=== PATIENT | female | born 1940 | race Caucasian/White ===

== ENCOUNTER 2019-03-26 22:42 | Inpatient (IN) | payer MEDICARE, OTHER, SELFPAY ==
[2019-03-26 22:05] VITALS: BMI 29.1
--- NOTE | 2019-03-26 22:40 | PCM.HP.STD ---
Problem List (1) Fracture of ankle, trimalleolar, right, closed Status: Acute (2) Right ankle pain Status: Acute (3) Osteoporosis Status: Acute (4) Anxiety Status: Chronic (5) Hypertension Status: Chronic (6) Chronic kidney disease Status: Chronic (7) Diabetes mellitus with neuropathy Status: Chronic Qualifiers: Diabetes mellitus type: type 2 History of Present Illness Date of Admission: 03/26/19 Chief Complaint: Right ankle fracture The patient is a 79 year old F with diabetes sustained a right ankle fracture which he stepped incorrectly off of one step at home. The onset of injury was 14 o'clock on 03/26/19. She denies other injuries or loss of consciousness. She initially presented to [place] emergency room in which the fracture was reduced and splinted. Her pain is moderate and is aggravated with leg motion. She denies claudication. She does have rest paresthesias consistent with diabetic neuropathy. She relates her last hemoglobin A1c level was less than 7. She denies history of wounds. She is with her daughter, Cayetano, this evening. She relates she is currently a smoker and will have no problem avoiding this activity at this time. Past Medical History Past Medical History (Chronic Problems): Chronic Problems (Last Updated 03/26/19 @ 22:57 by Renu Padgett DPM) Anxiety (Chronic) Hypertension (Chronic) Chronic kidney disease (Chronic) Diabetes mellitus with neuropathy (Chronic) Medical History: Medical History (Last Updated 03/26/19 @ 22:57 by Renu Padgett DPM) Compression fracture of spine M48.50XA De Quervain's disease (tenosynovitis) M65.4 Hyperlipidemia E78.5 Obesity E66.9 Tobacco user Z72.0 Chronic back pain M54.9, G89.29 Allergies amoxicillin [From Augmentin] Adverse Reaction (Verified 03/26/19 22:06) Diarrhea clavulanic acid [From Augmentin] Adverse Reaction (Verified 03/26/19 22:06) Diarrhea iodine Adverse Reaction (Verified 03/26/19 22:08) Other Long time ago got a shot of Iodine and about passed out. Home Medications: Ambulatory Orders Medication Instructions Recorded Acetaminophen [Tylenol Extra 1,000 mg PO BID 03/26/19 Strength] Alendronate Sodium 70 mg PO WE 03/26/19 Aspir-Low 1 tab PO DAILY 03/26/19 Calcitriol 0.5 mcg PO DAILY 03/26/19 Cholecalciferol (Vitamin D3) 50,000 unit PO DAILY 03/26/19 [D3-50] Glipizide 5 mg PO BIDCM 03/26/19 Lisinopril 2.5 mg PO DAILY 03/26/19 Paroxetine HCl [Paxil] 30 mg PO DAILY 03/26/19 Pioglitazone [Actos] 45 mg PO DAILY 03/26/19 Ranitidine [Zantac] 150 mg PO DAILY 03/26/19 Rosuvastatin Calcium [Crestor] 10 mg PO QHS 03/26/19 Surgical History: hysterectomy, tonsillectomy, - - Lymph node dissection Psychiatric History: Anxiety Lives: Spouse/ Significant Other, With Family - She lives with her adult daughter in which her relates his home on a regular basis throughout the day Smoking Status: Current every day smoker Tobacco Use: Cigarettes Alcohol: None Drugs: None - *Family History Maternal History Items: No pertinent history Review of Systems Constitutional: Reports: Fatigue. Denies: Chills, Fever HEENT: Reports: Difficulty Hearing. Denies: Sore Throat, Visual Changes Cardiovascular: Reports: Edema. Denies: Chest Pain, Claudication, Orthopnea Respiratory: Denies: Shortness of Breath Gastrointestinal: Denies: Abdominal Pain, Constipation, Diarrhea, Nausea, Vomiting Genitourinary: Denies: Dysuria Musculoskeletal: Reports: Leg Pain Skin: Denies: Skin Changes, Wounds Neurological: Reports: Balance problems, Incoordination, Numbness, Tingling. Denies: Confusion Psychiatric: Reports: Anxiety. Denies: Depression Endocrine: Denies: Change in Body Habitus Hematologic/ Lymphatic: Denies: Anemia, Hx of blood clot VTE Information - Inpt Only VTE Present on Admission: No VTE Mechan Device Prophylaxis: SCD's VTE Pharm Prophylaxis ordered?: Yes Patient Problems: Active and Suspected Problems (Last Updated 03/26/19 @ 22:57 by Renu Padgett DPM) Fracture of ankle, trimalleolar, right, closed (Acute) Right ankle pain (Acute) Osteoporosis (Acute) - Physical Exam Vitals/I&O's: Weight: 79.379 kg Body Mass Index (BMI) 29.1 General: Alert, Oriented x3, Cooperative HEENT: Atraumatic, EOMI, Normocephalic Oral: Moist Mucosa Neck: Supple, - Lungs: Diminished Cardiovascular: Regular rate, Regular Rhythm Abdomen: Soft, Non Tender, Obese Extremities: Capillary Refill Less than 3 Seconds - All digits bilateral, Diminished Peripheral Pulses - Weak dorsalis pedis pulse right foot. She did have a strong biphasic dorsalis pedis pulse of the right foot and to the perforating peroneal on the right., Edema - Mild, - - Per emergency room physician there was skin tenting without fracture blister or drainage or ecchymosis upon presentation. Skin: - - No wounds or streaking noted. Her skin turgor to the feet are normal Musculoskeletal: Muscle Wasting, - - Pain with ankle palpation. Active range of motion digits noted. Lymphatic: Cervical Adenopathy Neurological: Cranial nerves II-XII grossly intact, Neuro grossly intact, Sensory exam intact to light touch and pain, - Psych/Mental Status: Normal Affect, Appropriate Assessment/Plan All Active Problems (Last Updated 03/26/19 @ 22:57 by Renu Padgett DPM) Fracture of ankle, trimalleolar, right, closed (Acute) Right ankle pain (Acute) Osteoporosis (Acute) Right trimalleolar ankle fracture Osteoporosis Diabetes with neuropathy Other comorbidities: Current smoker, history of chronic kidney disease, anxiety I reviewed and discussed her case. Her x-rays were reviewed from [place] emergency room which demonstrate try malleolus ankle fracture that is not reduced and in a splint. Her bone density is diminished. Postreduction her ankle mortise is well aligned. This is an unstable fracture pattern and I recommend surgical intervention if she is medically stable. Her vital signs are reviewed from [place] emergency room and these appear to be stable overall. The benefits versus risks were discussed. Preoperative indications, planned procedure, possible benefits, risk, complications, and anticipated healing time and management were discussed in detail with the patient and her daughter today. No guarantees are made. She elects to proceed with surgery at this time. The tentative surgical plan includes open reduction internal fixation of right ankle fracture versus application of external fixation. She understands risks and complications may include but are not limited to following: Pain, swelling, scarring, need for further surgery, arthritis, chronic pain, over under correction, hardware failure, blood clot, allergic reaction, loss of limb, function, life. Informed surgical consent and limb will need to be signed. I will review the case with the hospitalist at this time and request a clearance for surgery under general anesthesia. Her preoperative tests were ordered including CBC, CMP, hemoglobin A1c, vitamin D, EKG, chest x-ray, and coags. If cleared and diagnostic data is stable, I would consider doing the surgery tomorrow. These results are currently pending and will be followed. Pending surgical plan intervention we discussed the possibility of usp facility placement. I recommend she maintain a strict nonweightbearing status. Smoking cessation was reviewed and discussed. She defers the need for nicotine patch. To ice and elevate for pain inflammation management. Pain medication orders were also placed in computer. She will tentatively be made n.p.o. at midnight. To hold anticoagulation medication until after surgery. SCD to the contralateral limb is recommended at this time. It is noted she is not on any anticoagulation medication at this time. We also discussed her CODE STATUS and she is a DNR. Medical management and DVT prophylaxis per primary team is greatly appreciated. I answered all of her questions. Please do not hesitate to call if any questions. All of her orders were entered electronically. Renu Padgett DPM, [facility] [phone]
--- NOTE | 2019-03-26 22:45 | EKG12_ITS ---
Test Reason : PREOP Blood Pressure : / mmHG Vent. Rate : 067 BPM Atrial Rate : 067 BPM P-R Int : 180 ms QRS Dur : 072 ms QT Int : 402 ms P-R-T Axes : 037 013 034 degrees QTc Int : 424 ms Normal sinus rhythm Septal infarct , age undetermined , cannot be excluded Abnormal ECG Confirmed by SONIYA MARSH, SHA ([id number]), digital editor SHIVA CORONA ([id number]) on 03/31/2019 10:13:20 AM Referred By: Renu Padgett Confirmed By:SHA BYRNES MD
[2019-03-26 22:50] VITALS: BP 149/68; PULSE 65; RESP 18; TEMP 36.6; O2SAT 98
--- NOTE | 2019-03-26 23:15 | RAD_ITS ---
STUDY: X-RAY - RIGHT TIBIA AND FIBULA REASON FOR EXAM: Female, 79 years old. Trauma TECHNIQUE: 4 view(s) of the tibia and fibula were obtained. There is a splint overlying the distal tibia and fibula obscuring bony detail for diagnostic purposes. COMPARISON : None. FINDINGS: There is demineralization of the tibia. There is an acute fracture of the distal fibula with lateral displacement of the distal fragment. There is an offset appearance of the ankle mortise. There is a widening of the tibiotalar joint. A fracture line of the medial malleolus is not included or excluded based on this study. There is a Achilles spur. There is partially visualized soft tissue edema. RAD/Tibia & Fibula 2 Views IMPRESSION: The patient is already in a brace or splint. Disruption of the ankle mortise. Fracture of the distal fibula. Suspect fracture of the medial malleolus that is not well-visualized. Electronically Signed: Maria Alejandra Gutierrez MD at 4:32 EDT Tel , Service support ,
[2019-03-26 23:18] LABS: Absolute Lymphocyte Count 2.73 X10^3/uL (0.83-4.51); Absolute Neutrophil Count 8.4 X10^3/uL (2.0-7.7); Basophil# 0.09 X10^3/uL; Basophil% 0.7 % (0-1); Eosinophil# 0.18 X10^3/uL; Eosinophils% 1.4 % (0-5); Hematocrit 38.3 % (37-47); Hemoglobin 12.2 g/dL (12.0-15.0); Lymphocyte # 2.73 X10^3/ul (4.0); Mean Corp Hgb Conc 31.9 g/dL (32-36); Mean Corpuscular Hgb 30.4 pg (27.0-32.0); Mean Corpuscular Volume 95.5 fL (81-99); Monocyte# 0.97 X10^3/uL; Monocyte% 7.8 % (0-10); NRBC Flagged by Analyzer 0 % (0-5); Neutrophil # 8.39 X10^3/uL (2.7-7.7); Neutrophil % 67.5 % (47-70); Platelet Count 253 K/mm3 (150-450); RBC Distribution Width CV 15.3 % (11.6-14.6); RBC Distribution Width SD 54.2 fl (35.1-43.9); Red Blood Count 4.01 M/mm3 (4.2-5.4); White Blood Count 12.4 K/mm3 (4.4-11.0)
--- NOTE | 2019-03-26 23:24 | RAD_ITS ---
STUDY: X-RAY CHEST REASON FOR EXAM: Female, 79 years old. Pre-op TECHNIQUE: PA and lateral views of the chest. COMPARISON: None. FINDINGS: Allowing for technique there is focal opacity within the lingula. There is no demonstrated pleural abnormality. Normal size heart. Normal mediastinum and adam. Normal visualized pulmonary arteries. Normal visualized aortic arch and descending thoracic aorta. Normal visualized thoracic spine. Normal visualized ribs, clavicles, and shoulders. There is no demonstrated abnormality of the visualized soft tissue structures of the upper abdomen. RAD/Chest PA and Lateral IMPRESSION: Allowing for summation of shadows findings are suspicious for left lingular atelectasis and/or infiltrate. Could consider noncontrast CT scan of the chest to confirm. Electronically Signed: Maria Alejandra Gutierrez MD at 4:49 EDT Tel , Service support ,
[2019-03-26 23:32] LABS: Prothrombin Time (Protime)PT. 13.3 SECONDS (11.7-14.9)
[2019-03-26] MEDS: Morphine 2 MG/ML Syringe IV (23:36)
[2019-03-26 23:37] LABS: ALB/GLOB Ratio 0.8 RATIO (0.9-2.4); AST(SGOT) 13 U/L (15-37); Alanine Aminotransfer ALT/SGPT 13 U/L (13-56); Albumin, Serum 3.1 g/dL (3.2-5.0); Alkaline Phosphatase 76 U/L (45-117); Anion Gap 4 (5-15); BUN 19 mg/dL (7-18); BUN/Creat Ratio 16.8 RATIO (10-20); Calcium,Total 8.1 mg/dL (8.5-10.1); Chloride 114 mmol/L (98-107); Creatinine, Serum 1.13 mg/dL (0.55-1.02); EST Glomerular Filtration Rate 49 mL/min (>60); Est Glom Filt Rate - Afr Amer 60 mL/min (>60); Estimated Creatinine Clearance 36.33 ml/min; Globulin 4.1 g/dL (2.2-4.2); Glucose 99 mg/dL (74-106); Potassium 4.3 mmol/L (3.5-5.1); Protein, Total 7.2 g/dL (6.4-8.2); Sodium Level 141 mmol/L (136-145)
[2019-03-26 23:39] LABS: Hemoglobin A1c 6.6 % (4.2-6.3)
--- NOTE | 2019-03-26 23:40 | PCM.CONS.GEN ---
Problem List (1) Fracture of ankle, trimalleolar, right, closed Status: Acute (2) Right ankle pain Status: Acute (3) Osteoporosis Status: Chronic (4) Anxiety Status: Chronic (5) Hypertension Status: Chronic (6) Chronic kidney disease Status: Chronic Qualifiers: Chronic kidney disease stage: stage 3 (moderate) Qualified Code(s): N18.3 - Chronic kidney disease, stage 3 (moderate) (7) Diabetes mellitus with neuropathy Status: Chronic Qualifiers: Diabetes mellitus type: type 2 Reason for Consult Date of Consultation: 03/26/19 Reason for Consultation: medical management and pre-operative clearance History of Present Illness: The patient is a 79 year old F with a significant history of diabetes mellitus with neuropathy; hypertension; depression and anxiety; GERD, tobacco abuse and hyperlipidemia with a trimalleolar fracture of the right ankle for which internal medicine service has been consulted for medical management and preoperative clearance. While walking on his back porch patient missed a step; fell and developed a\ severe pain of her right foot. She went to [place] emergency department where an x-ray showed a trimalleolar fracture. A splint was applied to her right leg and a right foot . Orthopedic surgeon Dr. Padgett plans to do ORIF of the right ankle to fix the tri-malleolar fracture. Past Medical History Past Medical History (Chronic Problems): Chronic Problems (Last Reviewed 03/27/19 @ 01:36 by Cesar Albarado MD) Osteoporosis (Chronic) Anxiety (Chronic) Hypertension (Chronic) Chronic kidney disease (Chronic) Diabetes mellitus with neuropathy (Chronic) Medical History: Medical History (Last Reviewed 03/27/19 @ 06:58 by Cesar Albarado MD) Compression fracture of spine M48.50XA De Quervain's disease (tenosynovitis) M65.4 Hyperlipidemia E78.5 Obesity E66.9 Tobacco user Z72.0 Chronic back pain M54.9, G89.29 Allergies amoxicillin [From Augmentin] Adverse Reaction (Verified 03/26/19 22:06) Diarrhea clavulanic acid [From Augmentin] Adverse Reaction (Verified 03/26/19 22:06) Diarrhea iodine Adverse Reaction (Verified 03/26/19 22:08) Other Long time ago got a shot of Iodine and about passed out. Home Medications: Ambulatory Orders Medication Instructions Recorded Acetaminophen [Tylenol Extra 1,000 mg PO BID 10/25/19 Strength] Alendronate Sodium 70 mg PO WE 03/26/19 Aspir-Low 1 tab PO DAILY 03/26/19 Calcitriol 0.5 mcg PO DAILY 03/26/19 Cholecalciferol (Vitamin D3) 50,000 unit PO DAILY 03/26/19 [D3-50] Glipizide 5 mg PO BIDCM 03/26/19 Lisinopril 2.5 mg PO DAILY 03/26/19 Paroxetine HCl [Paxil] 30 mg PO DAILY 03/26/19 Pioglitazone [Actos] 45 mg PO DAILY 03/26/19 Ranitidine [Zantac] 150 mg PO DAILY 03/26/19 Rosuvastatin Calcium [Crestor] 10 mg PO QHS 03/26/19 Surgical History: hysterectomy, tonsillectomy, - - Lymph node dissection Psychiatric History: Anxiety Lives: Spouse/ Significant Other, With Family - She lives with her adult daughter in which her relates his home on a regular basis throughout the day Smoking Status: Current every day smoker Tobacco Use: Cigarettes Alcohol: None Drugs: None - *Family History Maternal History Items: Cancer Paternal History Items: Heart Disease Review of Systems Constitutional: Denies: Chills, Fever, Weight Change HEENT: Denies: Head Aches, Sinus Congestion, Sinus Drainage Cardiovascular: Denies: Chest Pain, Palpitations Respiratory: Denies: Cough, Shortness of breath at rest, Sputum production Gastrointestinal: Denies: Abdominal Pain, Nausea, Vomiting Genitourinary: Denies: Dysuria Musculoskeletal: Reports: Foot Pain - Right, Joint Pain - Right ankle, Joint Tenderness Skin: Denies: Rash, Wounds Neurological: Denies: Numbness, Tingling, Focal weakness Psychiatric: Reports: Anxiety, Depression. Denies: Homicidal Ideations, Suicidal Ideations Hematologic/ Lymphatic: Denies: Easy Bruising, Easy Bleeding Patient Problems: Active and Suspected Problems (Last Reviewed 03/27/19 @ 01:36 by Cesar Albarado MD) Fracture of ankle, trimalleolar, right, closed (Acute) Right ankle pain (Acute) - Physical Exam Vitals/I&O's: Weight: 79.379 kg Body Mass Index (BMI) 29.1 General: Alert, Oriented x3, Cooperative HEENT: Atraumatic, PERRLA, EOMI, Normocephalic Neck: Supple, No JVD, Negative Carotid Bruits Lungs: Clear to auscultation, Normal air movement Cardiovascular: Regular rate, No murmurs Abdomen: Bowel Sounds Present, Soft, Non Tender Extremities: Capillary Refill Less than 3 Seconds, - - Right leg and right foot with splint and andrez wrap Skin: No rashes, No breakdown Musculoskeletal: No Tenderness to Palpation of Joints or Extremities Neurological: Cranial nerves II-XII grossly intact Psych/Mental Status: Normal Affect, Appropriate Laboratory Results 03/26/19 23:10: WBC 12.4 H, RBC 4.01 L, Hgb 12.2, Hct 38.3, MCV 95.5, MCH 30.4, MCHC 31.9 L, RDW Std Deviation 54.2 H, RDW Coeff of Sadia 15.3 H, Plt Count 253, MPV 10.0, Immature Gran % (Auto) 0.600, Neut % (Auto) 67.5, Lymph % (Auto) 22.0, [place] % (Auto) 7.8, Eos % (Auto) 1.4, Baso % (Auto) 0.7, Absolute Neuts (auto) 8.4 H, Absolute Lymphs (auto) 2.73, Nucleated RBC % 0 03/26/19 23:10: Sodium 141, Potassium 4.3, Chloride 114 H, Carbon Dioxide 23.0, Anion Gap 4 L, BUN 19 H, Creatinine 1.13 H, Estim Creat Clear Calc 36.33, Est GFR (MDRD) Af Amer 60, Est GFR (MDRD) Non-Af 49 L, BUN/Creatinine Ratio 16.8, Glucose 99, Calcium 8.1 L, Total Bilirubin 0.40, AST 13 L, ALT 13, Alkaline Phosphatase 76, Total Protein 7.2, Albumin 3.1 L, Globulin 4.1, Albumin/Globulin Ratio 0.8 L 03/26/19 23:10: PT Pending, INR Pending 03/26/19 23:10: Hemoglobin A1c 6.6 H 03/26/19 23:10: Vitamin D 25-Hydroxy Pending Current Medications Hydrocodone Bitart/Acetaminophen ([place] 5mg-325mg) 1 tablet PO Q6H PRN PRN PRN Reason: Pain Score 4-5/10 Dextrose (D50w Syringe) 0 gm IV X1 PRN; Protocol PRN Reason: Hypoglycemia Docusate Sodium (Colace) 100 mg PO BID PRN PRN PRN Reason: Constipation Famotidine (Pepcid) 20 mg PO BID IVONNE Glucagon () 1 mg IM .X1 PRN PRN Reason: Hypoglycemia Morphine Sulfate () 2 mg IV Q3H PRN PRN PRN Reason: Pain Score 6-10/10 Last Admin: 03/26/19 23:36 Dose: 2 mg Documented by: Ondansetron HCl (Zofran) 4 mg IV Q8H PRN PRN PRN Reason: NAUSEA/VOMITING Prochlorperazine Edisylate (Compazine Iv) 5 mg IV Q4H PRN PRN PRN Reason: Breakthrough nausea/vomiting Assessment/Plan All Active Problems (Last Reviewed 03/27/19 @ 01:36 by Cesar Albarado MD) Fracture of ankle, trimalleolar, right, closed (Acute) Right ankle pain (Acute) The patient is a 79 year old F with a significant history of diabetes mellitus with neuropathy; hypertension; depression and anxiety; GERD, tobacco abuse and hyperlipidemia with a trimalleolar fracture of the right ankle. Trimalleolar fracture of the right ankle Orthopedic doctor plan to take the patient in for ORIF. Revised cardiac risk index: High risk surgery: No History of ischemic heart disease: Patient denies History of congestive heart failure: Patient denies History of cerebral vascular disease: Patient denies Appropriate treatment of insulin: Patient denies Preoperative creatinine more than 2 mg/dL: Yes. Per criteria patient has one-point; class II risk; 6% 30-day risk of , IA or cardiac arrest. Due to her advanced age and comorbidities (diabetes (Controlled); and hypertension) patient is at higher than average risk for complications intraoperatively and postoperatively. At this time patient appears medically stable for surgery. Preoperative EKG showed normal axis with Q waves in V1 and V2 showing septal infarct, age undetermined. Chest x-ray was ordered by primary results are pending. Patient on morphine sulfate; on PRN Zofran. And PRN Compazine. N.p.o. after midnight by primary Leukocytosis Likely reactive Trend Hypertension Her blood pressure is stable in regard to her age. Home blood pressure medication held because patient is n.p.o. Hydralazine IV as needed ordered CKD stage III Stable Diabetes mellitus On presentation her A1c was 6.6 Blood glucose is within goal. Glipizide and Actos held at this time. Accu-Chek every 6 hours while n.p.o. Depression anxiety Resume home Paxil when not n.p.o. Tobacco abuse Counselled DVT prophylaxis With SCD on contralateral leg without fracture. Code Visit Inpatient E&M: 42114 Subs Hosp L3
[2019-03-26] MEDS: Famotidine 20 MG Tablet PO (23:55)
[2019-03-26 23:59] LABS: Color, Urine Yellow (Yellow); Glucose, Dipstick Normal (Normal); Ketone-Dipstick Negative (Negative); Leukocyte Esterase-Dipstick 500 /ul (Negative); Mucous, Urine 0 SEEN /hpf (<or=2+); Nitrite-Dipstick Negative (Negative); Occult Blood-Urine 10 /ul (Negative); Protein-Dipstick 15 mg/dl (Negative); Specific Gravity, Urine 1.015 (1.002-1.030); Squamous Epithelial Cells - UA 0 SEEN /hpf (5-10); Urine Bilirubin Dipstick Negative (Negative); Urine Clarity Sl. Cloudy (Clear); Urine Urobilinogen Normal (Normal)
[2019-03-27] VITALS (9 sets, daily range): BP systolic 133–165; BP diastolic 47–78; PULSE 61–76; RESP 16–18; TEMP 36.3–37; O2SAT 94–100; BMI 29.1
[2019-03-27 00:05] LABS: Bacteria 3+ /hpf (None Seen); Red Blood Cells-Urine 0-5 SEEN /hpf (0-5); White Blood Cells 25-50 SEEN /hpf (0-5)
[2019-03-27 00:46] LABS: Bedside Glucose 95 mg/dL (70-110)
[2019-03-27] MEDS: 0.9% Saline Lock 10 ML Syringe IV ×3 (05:17→06:40)
[2019-03-27] MEDS: Morphine 2 MG/ML Syringe IV ×2 (05:18→09:37)
[2019-03-27 05:25] LABS: Bedside Glucose 122 mg/dL (70-110)
[2019-03-27] MEDS: Lactated Ringers 1,000 ML 80 ML IV ×2 (06:40→15:30)
--- NOTE | 2019-03-27 07:34 | PCM.PN.HOSP ---
Patient Problems: Active and Suspected Problems (Last Reviewed 03/27/19 @ 06:58 by Cesar Albarado MD) Fracture of ankle, trimalleolar, right, closed (Acute) Right ankle pain (Acute) Subjective: CC: Follow-up right ankle fracture Patient is a 79-year-old lady who was admitted following a fall imaging studies demonstrated trimalleolar fracture involving the right ankle is currently admitted to regular nursing floor for further management Objective: GENERAL: cooperative HEENT: Atraumatic; EYES; Anicteric, Normal Conjunctiva NECK; supple, normal thyroid, RESPIRATORY: Diminished to auscultation CARDIOVASCULAR: Regular S1 S2, GI: soft, normoactive bowel sounds, : No Renal angle tenderness; EXTREMITIES: No edema, no clubbing, MUSCULOSKELETAL: Right ankle immobilized NEURO: Awake; no lateralizing signs. SKIN: No Rash PSYCH; normal affect Vitals/I&O's: Vital Signs Temp Pulse Resp BP Pulse Ox 97.8 F 66 18 148/72 H 97 03/27/19 03:37 03/27/19 03:37 03/27/19 03:37 03/27/19 03:37 03/27/19 03:37 Oxygen Delivery Method Room Air Weight: 79.379 kg Body Mass Index (BMI) 29.1 Intake and Output for Last 24 Hours 03/25/19 03/26/19 03/27/19 23:59 23:59 23:59 Intake Total 200 / 200 Output Total 600 / 600 Balance -400 / -400 Laboratory Results 03/26/19 23:10: WBC 12.4 H, RBC 4.01 L, Hgb 12.2, Hct 38.3, MCV 95.5, MCH 30.4, MCHC 31.9 L, RDW Std Deviation 54.2 H, RDW Coeff of Sadia 15.3 H, Plt Count 253, MPV 10.0, Immature Gran % (Auto) 0.600, Neut % (Auto) 67.5, Lymph % (Auto) 22.0, [place] % (Auto) 7.8, Eos % (Auto) 1.4, Baso % (Auto) 0.7, Absolute Neuts (auto) 8.4 H, Absolute Lymphs (auto) 2.73, Nucleated RBC % 0 03/26/19 23:10: Sodium 141, Potassium 4.3, Chloride 114 H, Carbon Dioxide 23.0, Anion Gap 4 L, BUN 19 H, Creatinine 1.13 H, Estim Creat Clear Calc 36.33, Est GFR (MDRD) Af Amer 60, Est GFR (MDRD) Non-Af 49 L, BUN/Creatinine Ratio 16.8, Glucose 99, Calcium 8.1 L, Total Bilirubin 0.40, AST 13 L, ALT 13, Alkaline Phosphatase 76, Total Protein 7.2, Albumin 3.1 L, Globulin 4.1, Albumin/Globulin Ratio 0.8 L 03/26/19 23:10: PT 13.3, INR 1.0 03/26/19 23:10: Hemoglobin A1c 6.6 H 03/26/19 23:10: Vitamin D 25-Hydroxy Pending 03/26/19 23:17: POC Glucose 95 03/26/19 23:45: Urine Color Yellow, Urine Clarity Sl. Cloudy, Urine pH 6.0, Ur Specific Breeding 1.015, Urine Protein 15 H, Urine Glucose (UA) Normal, Urine Ketones Negative, Urine Occult Blood 10 H, Urine Nitrite Negative, Urine Bilirubin Negative, Urine Urobilinogen Normal, Ur Leukocyte Esterase 500 H, Urine RBC 0-5 SEEN, Urine WBC 25-50 SEEN, Ur Squamous Epith Cells 0 SEEN, Urine Bacteria 3+, Urine Mucus 0 SEEN 03/27/19 05:11: POC Glucose 122 H Current Medications Hydrocodone Bitart/Acetaminophen ([place] 5mg-325mg) 1 tablet PO Q6H PRN PRN PRN Reason: Pain Score 4-5/10 Dextrose (D50w Syringe) 0 gm IV X1 PRN; Protocol PRN Reason: Hypoglycemia Docusate Sodium (Colace) 100 mg PO BID PRN PRN PRN Reason: Constipation Famotidine (Pepcid) 20 mg PO BID [facility] Last Admin: 03/26/19 23:55 Dose: 20 mg Documented by: Glucagon () 1 mg IM .X1 PRN PRN Reason: Hypoglycemia Hydralazine HCl (Apresoline Iv) 5 mg IV Q4H PRN PRN PRN Reason: SBP > 160 Sodium Chloride () 250 mls @ 15 mls/hr IV .[id number] PRN PRN Reason: Saline Flush Lactated Ringer's () 1,000 mls @ 80 mls/hr IV .[id number] [facility] Last Admin: 03/27/19 06:40 Dose: 80 mls/hr Documented by: Morphine Sulfate () 2 mg IV Q3H PRN PRN PRN Reason: Pain Score 6-10/10 Last Admin: 03/27/19 05:18 Dose: 2 mg Documented by: Nystatin (Mycostatin Powder) 1 applic TOPICAL BID [facility]; Protocol Ondansetron HCl (Zofran) 4 mg IV Q8H PRN PRN PRN Reason: NAUSEA/VOMITING Prochlorperazine Edisylate (Compazine Iv) 5 mg IV Q4H PRN PRN PRN Reason: Breakthrough nausea/vomiting Sodium Chloride () 10 - 40 ml IV UD PRN PRN Reason: SALINE FLUSH Last Admin: 03/27/19 06:40 Dose: 10 ml Documented by: STROKE Vital Signs/Narrative: Vital Signs Temp Pulse Resp BP Pulse Ox 03/27/19 03:37 97.8 F 66 18 148/72 H 97 Medical Necessity - Tobacco Use Smoking Status: Current every day smoker Tobacco Use: Cigarettes Assessment/Plan All Active Problems (Last Reviewed 03/27/19 @ 06:58 by Cesar Albarado MD) Fracture of ankle, trimalleolar, right, closed (Acute) Right ankle pain (Acute) Patient is a 79-year-old lady who was admitted following a fall imaging studies demonstrated trimalleolar fracture involving the right ankle is currently admitted to regular nursing floor for further management 1. Acute mechanical fall with resultant Trimalleolar fracture of the right ankle ~ Admitted to regular nursing floor for mobilization pain management with consultation placed to podiatry plan is for patient to undergo ORIF ?Patient has been risk for perioperative morbidity mortality estimated to be moderate for this low risk surgery no subsequent evaluation recommended prior to procedure 2. Hypertension ~ blood pressure controlled, home medications continued with dose adjustment as needed 3. Dyslipidemia ~patient is on statin therapy, continued at home dose 4. Diabetes mellitus type II ~Controlled, patient's oral hypoglycemics held. Placed onAccu-Cheks a.c. and at bedtime and covered with sliding scale insulin 5. Depression with anxiety ~ Patient is on SSRI did continue 6. Chronic kidney disease stage II ~Stable kidney function at baseline 7. DVT prophylaxis ~SCDs for now with plans to initiate low molecular with heparin following patient's procedure 8. Left lingular infiltrate ~ Patient presentation not consistent with pneumonia no cough no shortness of breath has slightly elevated white cell count but however remains afebrile Active Medications Hydrocodone Bitart/Acetaminophen ([place] 5mg-325mg) 1 tablet PO Q6H PRN PRN PRN Reason: Pain Score 4-5/10 Dextrose (D50w Syringe) 0 gm IV X1 PRN; Protocol PRN Reason: Hypoglycemia Docusate Sodium (Colace) 100 mg PO BID PRN PRN PRN Reason: Constipation Famotidine (Pepcid) 20 mg PO BID [facility] Last Admin: 03/26/19 23:55 Dose: 20 mg Documented by: Glucagon () 1 mg IM .X1 PRN PRN Reason: Hypoglycemia Hydralazine HCl (Apresoline Iv) 5 mg IV Q4H PRN PRN PRN Reason: SBP > 160 Sodium Chloride () 250 mls @ 15 mls/hr IV .[id number] PRN PRN Reason: Saline Flush Lactated Ringer's () 1,000 mls @ 80 mls/hr IV .[id number] [facility] Last Admin: 03/27/19 06:40 Dose: 80 mls/hr Documented by: Morphine Sulfate () 2 mg IV Q3H PRN PRN PRN Reason: Pain Score 6-10/10 Last Admin: 03/27/19 09:37 Dose: 2 mg Documented by: Nystatin (Mycostatin Powder) 1 applic TOPICAL BID [facility]; Protocol Ondansetron HCl (Zofran) 4 mg IV Q8H PRN PRN PRN Reason: NAUSEA/VOMITING Prochlorperazine Edisylate (Compazine Iv) 5 mg IV Q4H PRN PRN PRN Reason: Breakthrough nausea/vomiting Sodium Chloride () 10 - 40 ml IV UD PRN PRN Reason: SALINE FLUSH Last Admin: 03/27/19 06:40 Dose: 10 ml Documented by: Clinical Impression(s) from Imaging Studies Tibia/Fibula X-Ray 03/26/19 23:15 IMPRESSION: The patient is already in a brace or splint. Disruption of the ankle mortise. Fracture of the distal fibula. Suspect fracture of the medial malleolus that is not well-visualized. Electronically Signed: Maria Alejandra Gutierrez MD at 4:32 EDT Tel , Service support , Chest X-Ray 03/26/19 23:24 IMPRESSION: Allowing for summation of shadows findings are suspicious for left lingular atelectasis and/or infiltrate. Could consider noncontrast CT scan of the chest to confirm. Electronically Signed: Maria Alejandra Gutierrez MD at 4:49 EDT Tel , Service support , Code Visit Inpatient E&M: 54236 Subs Hosp L3
[2019-03-27 07:47] LABS: Absolute Lymphocyte Count 2.37 X10^3/uL (0.83-4.51); Basophil# 0.11 X10^3/uL; Basophil% 0.9 % (0-1); Eosinophil# 0.17 X10^3/uL; Eosinophils% 1.4 % (0-5); Hematocrit 39.1 % (37-47); Hemoglobin 12.3 g/dL (12.0-15.0); Lymphocyte # 2.37 X10^3/ul (4.0); Lymphocyte % 20.1 % (19-41); Mean Corp Hgb Conc 31.5 g/dL (32-36); Mean Corpuscular Hgb 30.1 pg (27.0-32.0); Mean Corpuscular Volume 95.6 fL (81-99); Mean Platelet Vol. 10.1 fl (6.2-12.0); Monocyte# 1.04 X10^3/uL; Monocyte% 8.8 % (0-10); NRBC Flagged by Analyzer 0 % (0-5); Neutrophil # 8.02 X10^3/uL (2.7-7.7); Neutrophil % 68.3 % (47-70); Platelet Count 250 K/mm3 (150-450); RBC Distribution Width CV 15.2 % (11.6-14.6); RBC Distribution Width SD 54.4 fl (35.1-43.9); Red Blood Count 4.09 M/mm3 (4.2-5.4); White Blood Count 11.8 K/mm3 (4.4-11.0)
[2019-03-27 08:11] LABS: Anion Gap 6 (5-15); BUN 18 mg/dL (7-18); BUN/Creat Ratio 15.9 RATIO (10-20); Calcium,Total 7.8 mg/dL (8.5-10.1); Chloride 116 mmol/L (98-107); Creatinine, Serum 1.13 mg/dL (0.55-1.02); EST Glomerular Filtration Rate 49 mL/min (>60); Est Glom Filt Rate - Afr Amer 60 mL/min (>60); Estimated Creatinine Clearance 36.33 ml/min; Glucose 142 mg/dL (74-106); Potassium 4.1 mmol/L (3.5-5.1); Sodium Level 142 mmol/L (136-145)
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
--- NOTE | 2019-03-27 09:00 | RAD_ITS ---
STUDY: X-RAY - RIGHT ANKLE REASON FOR EXAM: Female, 79 years old. Fluoroscopic guidance for ankle fracture fixation TECHNIQUE: 8 view(s) of the ankle. 117.1 seconds of fluoroscopy time. COMPARISON: 03/27/2019 FINDINGS: Fluoroscopic images demonstrate fixation plate and screws of distal fibula with 2 fixation screws of the medial malleolus. There is gross radiographic alignment. Ankle mortise is congruent. RAD/Ankle min 3 Views IMPRESSION: Fluoroscopic guidance for bimalleolar fracture fixation. Please see procedural report. Electronically Signed: Kai Pandey MD ([place]) at 15:25 EDT , Service support ,
--- NOTE | 2019-03-27 10:18 | PN_ITS ---
Patient Problems: Active and Suspected Problems (Last Reviewed 03/27/19 @ 06:58 by Cesar Albarado MD) Fracture of ankle, trimalleolar, right, closed (Acute) Right ankle pain (Acute) Subjective: This 79-year-old female with significant medical history of diabetes, chronic kidney disease, hypertension was seen bedside this morning for right trimalleolar ankle fracture. She is waiting to undergo surgical intervention. Her pain is controlled. She denies new illness overnight. She consents to the procedure - Physical Exam Vitals/I&O's: Vital Signs Temp Pulse Resp BP Pulse Ox 98.6 F 64 18 138/75 H 94 03/27/19 09:14 03/27/19 09:14 03/27/19 09:14 03/27/19 09:14 03/27/19 09:14 Oxygen Delivery Method Room Air Weight: 79.379 kg Body Mass Index (BMI) 29.1 Intake and Output for Last 24 Hours 03/25/19 03/26/19 03/27/19 23:59 23:59 23:59 Intake Total 200 / 200 Output Total 600 / 600 Balance -400 / -400 General: Alert, Oriented x3, Cooperative Extremities: Capillary Refill Less than 3 Seconds, No Calf Tenderness Skin: - - Splint to lower extremities intact Musculoskeletal: Muscle Wasting, - - Rectus right ankle and splint. No skin tenting. Compartments are soft to palpate right lower extremity Neurological: Sensory exam intact to light touch and pain Psych/Mental Status: Normal Affect, Appropriate Laboratory Results 03/26/19 23:10: WBC 12.4 H, RBC 4.01 L, Hgb 12.2, Hct 38.3, MCV 95.5, MCH 30.4, MCHC 31.9 L, RDW Std Deviation 54.2 H, RDW Coeff of Sadia 15.3 H, Plt Count 253, MPV 10.0, Immature Gran % (Auto) 0.600, Neut % (Auto) 67.5, Lymph % (Auto) 22.0, [place] % (Auto) 7.8, Eos % (Auto) 1.4, Baso % (Auto) 0.7, Absolute Neuts (auto) 8.4 H, Absolute Lymphs (auto) 2.73, Nucleated RBC % 0 03/26/19 23:10: Sodium 141, Potassium 4.3, Chloride 114 H, Carbon Dioxide 23.0, Anion Gap 4 L, BUN 19 H, Creatinine 1.13 H, Estim Creat Clear Calc 36.33, Est GFR (MDRD) Af Amer 60, Est GFR (MDRD) Non-Af 49 L, BUN/Creatinine Ratio 16.8, Glucose 99, Calcium 8.1 L, Total Bilirubin 0.40, AST 13 L, ALT 13, Alkaline Phosphatase 76, Total Protein 7.2, Albumin 3.1 L, Globulin 4.1, Albumin/Globulin Ratio 0.8 L 03/26/19 23:10: PT 13.3, INR 1.0 03/26/19 23:10: Hemoglobin A1c 6.6 H 03/26/19 23:10: Vitamin D 25-Hydroxy Pending 03/26/19 23:17: POC Glucose 95 03/26/19 23:45: Urine Color Yellow, Urine Clarity Sl. Cloudy, Urine pH 6.0, Ur Specific Tok 1.015, Urine Protein 15 H, Urine Glucose (UA) Normal, Urine Ketones Negative, Urine Occult Blood 10 H, Urine Nitrite Negative, Urine Bilirubin Negative, Urine Urobilinogen Normal, Ur Leukocyte Esterase 500 H, Urine RBC 0-5 SEEN, Urine WBC 25-50 SEEN, Ur Squamous Epith Cells 0 SEEN, Urine Bacteria 3+, Urine Mucus 0 SEEN 03/27/19 05:11: POC Glucose 122 H 03/27/19 07:31: WBC 11.8 H, RBC 4.09 L, Hgb 12.3, Hct 39.1, MCV 95.6, MCH 30.1, MCHC 31.5 L, RDW Std Deviation 54.4 H, RDW Coeff of Sadia 15.2 H, Plt Count 250, MPV 10.1, Immature Gran % (Auto) 0.500, Neut % (Auto) 68.3, Lymph % (Auto) 20.1, [place] % (Auto) 8.8, Eos % (Auto) 1.4, Baso % (Auto) 0.9, Absolute Neuts (auto) 8.0 H, Absolute Lymphs (auto) 2.37, Nucleated RBC % 0 03/27/19 07:31: Sodium 142, Potassium 4.1, Chloride 116 H, Carbon Dioxide 20.0 L , Anion Gap 6, BUN 18, Creatinine 1.13 H, Estim Creat Clear Calc 36.33, Est GFR (MDRD) Af Amer 60, Est GFR (MDRD) Non-Af 49 L, BUN/Creatinine Ratio 15.9, Glucose 142 H, Calcium 7.8 L Current Medications Hydrocodone Bitart/Acetaminophen ([place] 5mg-325mg) 1 tablet PO Q6H PRN PRN PRN Reason: Pain Score 4-5/10 Dextrose (D50w Syringe) 0 gm IV X1 PRN; Protocol PRN Reason: Hypoglycemia Docusate Sodium (Colace) 100 mg PO BID PRN PRN PRN Reason: Constipation Famotidine (Pepcid) 20 mg PO BID [facility] Last Admin: 03/26/19 23:55 Dose: 20 mg Documented by: Glucagon () 1 mg IM .X1 PRN PRN Reason: Hypoglycemia Hydralazine HCl (Apresoline Iv) 5 mg IV Q4H PRN PRN PRN Reason: SBP > 160 Sodium Chloride () 250 mls @ 15 mls/hr IV .[id number] PRN PRN Reason: Saline Flush Lactated Ringer's () 1,000 mls @ 80 mls/hr IV .[id number] [facility] Last Admin: 03/27/19 06:40 Dose: 80 mls/hr Documented by: Morphine Sulfate () 2 mg IV Q3H PRN PRN PRN Reason: Pain Score 6-10/10 Last Admin: 03/27/19 09:37 Dose: 2 mg Documented by: Nystatin (Mycostatin Powder) 1 applic TOPICAL BID [facility]; Protocol Ondansetron HCl (Zofran) 4 mg IV Q8H PRN PRN PRN Reason: NAUSEA/VOMITING Prochlorperazine Edisylate (Compazine Iv) 5 mg IV Q4H PRN PRN PRN Reason: Breakthrough nausea/vomiting Sodium Chloride () 10 - 40 ml IV UD PRN PRN Reason: SALINE FLUSH Last Admin: 03/27/19 06:40 Dose: 10 ml Documented by: Medical Necessity - Tobacco Use Smoking Status: Current every day smoker Tobacco Use: Cigarettes Assessment/Plan All Active Problems (Last Reviewed 03/27/19 @ 06:58 by Cesar Albarado MD) Fracture of ankle, trimalleolar, right, closed (Acute) Right ankle pain (Acute) Right trimalleolar ankle fracture Osteoporosis Diabetes with neuropathy Other comorbidities: current smoker, history of chronic kidney disease, anxiety I reviewed and discussed her case. Her x-rays were reviewed from [place] emergency room which demonstrate try malleolus ankle fracture that is not reduced and in a splint. There is a lateral distal fibula fracture spiral oblique that appears to be proximal to the ankle joint. Comminution is suspect ed and her decreased bone density is apparent. There is also a transverse medial malleolus fracture at the level of the joint line. There also appears to be a posterior malleolus fracture that is less than 15% of the articular surface. Her bone density is diminished. Postreduction her ankle mortise is well aligned. This is an unstable fracture pattern and I recommend surgical intervention if she is medically stable. Her vital signs are reviewed from [place] emergency room and these appear to be stable overall. The benefits versus risks were discussed. Preoperative indications, planned procedure, possible benefits, risk, complications, and anticipated healing time and management were discussed in detail with the patient and her daughter today. No guarantees are made. She elects to proceed with surgery at this time. The tentative surgical plan includes open reduction internal fixation of right ankle fracture versus application of external fixation. She understands risks and complications may include but are not limited to following: Pain, swelling, scarring, need for further surgery, arthritis, chronic pain, over under correction, hardware failure, blood clot, allergic reaction, loss of limb, function, life. Informed surgical consent and limb were signed. Her preoperative diagnostic data was reviewed including CBC, CMP, coags, and hemoglobin A1c which was 6.6%. Her vitamin D level is pending. Her EKG and chest x-ray are also reviewed. Clearance was obtained from the hospitalist who is also medically managing her. This evaluation is greatly appreciated. The procedure is tentatively scheduled for this morning pending operating room availability. I recommend she maintain a strict nonweightbearing status. Smoking cessation was reviewed and discussed. To ice and elevate for pain inflammation management. Pain medication orders were also placed in computer. She is n.p.o. at this time. To hold anticoagulation medication until after surgery. Medical management and DVT prophylaxis per primary team is greatly appreciated. I answered all of her questions. Please do not hesitate to call if any questions. Renu Padgett DPM, [facility] [phone]
--- NOTE | 2019-03-27 11:48 | NURSING ---
report called to pacu
--- NOTE | 2019-03-27 15:41 | OP.PCM_ITS ---
Problem List (1) Fracture of ankle, trimalleolar, right, closed Status: Acute Qualifiers: Encounter type: subsequent encounter (2) Right ankle pain Status: Acute Qualifiers: Chronicity: acute Qualified Code(s): M25.571 - Pain in right ankle and joints of right foot (3) Osteoporosis Status: Chronic Report of Operation Date of Procedure: 03/27/19 Pre-Operative Diagnosis: trimalleolus ankle fracture dislocation, right lower extremity Post-Operative Diagnosis: trimalleolus ankle fracture dislocation, right lower extremity Surgery/Procedure Performed:: open reduction internal fixation of right trimalleolus ankle fracture Description of Surgical Findings:: hemostasis: well padded pneumatic right thigh tourniquet, 315 mmHg, 90 minutes Materials: one arthrex 10 hole reconstructive fibula plate, two 4.0 cancellous screw, four 3.5 cortical screws, and two 3.5 locking screws, two partially threaded cannulated 3.5 screws (short and long thread), 2-0 and 4-0 vicryl, 4-0 nylon Complications: None Findings: Soft bone with comminuted fracture site The patient tolerated the procedure and anesthesia well. She was transported to the PACU with vital signs stable and vascular status intact the right lower extremity. Postoperative x-rays were obtained prior to leaving the operating room which demonstrated fracture reduction with adequate placement of plate and screws to the fibula and medial malleolus fracture sites. The hardware is in proper alignment with desired trajectory. The ankle mortise is well aligned. The ankle was stressed and no syndesmosis instability was suspected. No acute injuries were noted. She will be transferred back to the medical surgical floor upon continued stability. Her postoperative orders are entered electronically. clinical psychiatrist: none - Surgeon: Renu Padgett DPM. Twist Maker: Heather Nelson PGY1 Type of Anesthesia:: General, General/Regional Specimen's removed: none Estimated Blood Loss (mL): < 100 mL Description of Procedure: Indications: This 79-year-old female with significant past medical history of diabetes with neuropathy, stage III chronic kidney disease, osteoporosis, hypertension, obesity, and smoking habits stepped off of one stair at home and sustained a trimalleolar ankle fracture. Her date of injury was 03/26/2019 around 14 o'clock. She was taken to the [facility] emergency room in which closed reduction was performed. She was further transported to [facility]. A bedside Doppler was performed to confirm biphasic perforating peroneal and dorsalis pedis pulses. Upon splint removal it is noted that the skin integrity is intact without fracture blisters. Her fracture is consistent with a trimalleolar ankle fracture with a long spiral oblique distal fibula fracture proximal to the ankle joint level. There is a transverse medial malleolus fracture at the level of the joint and a posterior malleolus fracture that involves less than 15% of the tibial plafond. Postreduction ankle mortise is aligned. This is considered unstable fracture pattern and I recommended surgical intervention. She was admitted for medical clearance for surgery, pain control, and surgery. Preoperative diagnostic data including CBC, CMP, hemoglobin A1c (6.6%), EKG, and chest x-ray were reviewed. Medical clearance was confirmed with hospitalist and is greatly appreciated. The preoperative indication, planned procedure, possible benefits, risks, complications, and anticipated healing time is were discussed in detail with the patient. She understands and elects to proceed with surgery at this time. No guarantees were made. Risks and complications may include but are not limited to the following: pain, swelling, scarring, infection, delayed or nonhealing, failure of hardware, need for revisional surgery, over under correction, arthritis, chronic pain syndrome, loss of limb, function, life. The informed surgical consent and surgical limb were signed. I answered all her questions. Procedure in detail: The patient was taken to the operating room via cart and placed on the operating table in supine position. Final verification of the patient, surgery, limb designation was performed via the timeout procedure. A well-padded pneumatic right thigh tourniquet was placed. Preoperative antibiotics were administered by the anesthesia team. General anesthesia was initiated by the general anesthesia team and a regional block was also administered preoperative. The right lower extremity was prepped and draped in the usual aseptic manner and Esmarch bandage was used to exsanguinate the limb. The tourniquet was inflated at this time and surgery began with the following: Attention was first directed to the lateral distal fibula where an 8 cm linear incision was made through the skin. Blunt dissection was performed down to the fracture hematoma site taking care to identify, protect, and retract all neurovascular structures at this point and throughout the remainder of surgery. A lundy elevator was used to reflect soft tissue off of the fibula to allow placement of the plate. Care was taken to preserve the periosteum. Due to comminution and soft bone structure of this patient gentle manipulation and reduction was performed with several reduction clamps. There is a butterfly f ragments and this fracture site was left in its current consolidation pattern and was gently pulled out to length. The distal reconstructive Arthrex plate was secured with cancellous screws to the distal fibula. Under intraoperative fluoroscopy guidance the fracture was pulled out to length and reduced manually by hand. The proximal aspect was then secured with a BB tack. Next additional bone reducing forceps was used to address the malrotation of the distal fibula and one 3.5 cortical screw was applied utilizing proper leg technique perpendicular to spiral oblique fracture site was applied. Solid fixation was achieved and proper reduction was confirmed visually and with intraoperative fluoroscopy. Additional intraoperative fluoroscopy was next used to confirm adequate reduction and placement of the plate. This was further secured proximally with cortical screws. An additional cortical screw was applied distal to the fracture fragment site as well which allowed the bone to come in contact with the plates in a well contoured manner. Proper AO fixation technique was utilized throughout all hardware placement. Next attention was directed to the medial malleolus site in which a three and a half centimeter linear incision was made through the skin. Blunt dissection was performed down to the periosteal layer in which the invaginated periosteum was gently reflected from the fracture site. Through manual palpation of the fracture site the medial malleolus fragment was derotated and temporary fixated with the bone reducing forceps. Two cannulated partially-threaded 3.5 screws were applied utilizing a proper AO fixation technique. Solid reduction was achieved and proper placement of the screws and trajectory were confirmed with intraoperative fluoroscopy. The ankle mortise was well aligned. It is also noted that the posterior malleolus fragment appears to be reduced at this time and due to her age, limited ambulation, and concern for soft tissue disruption, direct fixation was not deemed necessary at this time. Several types of syndesmosis stress test were performed to determine if there is syndesmosis disruption. She did not demonstrate any medial gutter widening or disruption between the communication of the lateral tibia and fibula with stress dorsiflexion external rotation, inversion eversion of the ankle, or cotton test. No additional syndesmotic fixation was deemed necessary or placed. At this time additional screws were applied to the fibula plate in a locking manner. The fibula was considered solid and moved as one unit. The ankle was taken through passive range of motion and a smooth gliding manner. The wound sites were irrigated with normal saline. Final x-rays were taken as noted. Deep closure was achieved with Vicryl. The tourniquet was deflated at this time and brisk capillary refill time was noted to all digits of the right foot. Hemostasis was considered controlled with no pulsatile bleeding. Subcuticular closure was performed with 4-0 Vicryl and the skin was reapproximated with 3-0 nylon utilizing simple and horizontal mattress technique. A postoperative dressing of Betadine soaked Adaptic, 4 x 4 gauze, abdominal pads, Kerlix were applied. Additionally, a well-padded posterior mold with sugar tong splint was applied and secured with Sean wraps. After procedure: The patient tolerated the procedure and anesthesia well. She was transported to the PACU with vital signs stable and vascular status intact to the right lower extremity. She was advised to maintain a strict nonweightbearing status. To ice and elevate for pain inflammation management. It is noted she does have a regional block. Additional postoperative pain medications were also ordered for administration on the medical surgical floor. She will stay overnight for medical management and pain control. She will be evaluated by physical and occupational therapy to assess for likely usp facility placement. Postoperative x-rays were ordered and reviewed as noted. She will also keep her dressing and splint clean, dry, and intact. I will continue to follow her closely while in house. Her postoperative orders were entered electronically. Renu Padgett DPM, [facility] - Complications none - Admit VTE Documentation VTE Present on Admission: No VTE Mechan Device Prophylaxis: SCD's VTE Pharm Prophylaxis ordered?: Yes
--- NOTE | 2019-03-27 15:59 | RAD_ITS ---
STUDY: X-RAY - RIGHT ANKLE REASON FOR EXAM: Female, 79 years old. Status post fracture fixation TECHNIQUE: 3 view(s) of the ankle. COMPARISON: Earlier today FINDINGS: Fixation plate and screws of the distal fibula as well as 2 fixation screws of the medial malleolus. There is gross radiographic alignment. Cast material noted. Normal tibiotalar articulation and ankle mortise. Normal visualized talus and calcaneus. The visualized subtalar, talonavicular, calcaneocuboid and tarsal articulations are normal. The soft tissue structures are unremarkable. RAD/Ankle min 3 Views IMPRESSION: Bimalleolar fracture fixation. Gross radiographic alignment. Electronically Signed: Kai Pandey MD ([place]) at 16:30 EDT , Service support ,
[2019-03-27 16:11] LABS: Bedside Glucose 113 mg/dL (70-110)
--- NOTE | 2019-03-27 16:29 | PCA ---
pt off floor
--- NOTE | 2019-03-27 16:30 | PCA ---
pt off floor
[2019-03-27] MEDS: Ondansetron 4 MG/2 ML Vial IV (19:56)
[2019-03-27] MEDS: ALPRAZolam 0.5 MG Tablet PO (20:32)
[2019-03-27] MEDS: Nystatin Powder 15gm Bottle 1 APPLIC TOPICAL (20:34)
[2019-03-27] MEDS: Famotidine 20 MG Tablet PO (20:35)
[2019-03-27 23:10] LABS: Bedside Glucose 112 mg/dL (70-110)
[2019-03-28] MEDS: Lactated Ringers 1,000 ML 80 ML IV (02:29)
[2019-03-28 02:32] VITALS: BP 141/63; PULSE 80; RESP 18; TEMP 36.6; O2SAT 97
[2019-03-28] MEDS: Enoxaparin 40 MG/0.4 ML Syringe SC (05:48)
[2019-03-28 05:56] LABS: Bedside Glucose 106 mg/dL (70-110)
[2019-03-28] MEDS: Morphine 2 MG/ML Syringe IV (05:57)
--- NOTE | 2019-03-28 07:23 | PN_ITS ---
Patient Problems: Active and Suspected Problems (Last Reviewed 03/27/19 @ 06:58 by Cesar Albarado MD) Fracture of ankle, trimalleolar, right, closed (Acute) Right ankle pain (Acute) Subjective: This 79-year-old female with multiple comorbidities was seen bedside postoperative day #1 open reduction internal fixation of right lower extremity try malleolus ankle fracture. She relates her pain at worse is a 7 out of 10 and she has been elevating. She denies fever, chill, nausea, vomiting, shortness of breath, urinary retention, constipation, or chest pain. She has been using her incentive spirometer. She is amenable to consider intermediate facility placement. - Physical Exam Vitals/I&O's: Vital Signs Temp Pulse Resp BP Pulse Ox 97.9 F 80 18 141/63 H 97 03/28/19 02:32 03/28/19 02:32 03/28/19 02:32 03/28/19 02:32 03/28/19 02:32 Oxygen Delivery Method Room Air Weight: 79.379 kg Body Mass Index (BMI) 29.1 Finger Stick Blood Glucose 113 Intake and Output for Last 24 Hours 03/26/19 03/27/19 03/28/19 23:59 23:59 23:59 Intake Total 1932 / 1932 862.67 / 862.67 Output Total 1450 / 1450 600 / 600 Balance 482 / 482 262.67 / 262.67 General: Alert, Oriented x3, Cooperative Lungs: Diminished Cardiovascular: Regular rate, Regular Rhythm Extremities: Capillary Refill Less than 3 Seconds, No Calf Tenderness - Negative Mcgrath sign bilateral Skin: - - Postoperative dressing is clean, dry, and intact without strikethrough or adjacent streaking Musculoskeletal: Muscle Wasting, Tenderness - With surgical site palpation, - - Active range of motion of digits x5 right foot Neurological: Sensory exam intact to light touch and pain - To the toes Psych/Mental Status: Normal Affect, Appropriate Laboratory Results 03/27/19 07:31: WBC 11.8 H, RBC 4.09 L, Hgb 12.3, Hct 39.1, MCV 95.6, MCH 30.1, MCHC 31.5 L, RDW Std Deviation 54.4 H, RDW Coeff of Sadia 15.2 H, Plt Count 250, MPV 10.1, Immature Gran % (Auto) 0.500, Neut % (Auto) 68.3, Lymph % (Auto) 20.1, [place] % (Auto) 8.8, Eos % (Auto) 1.4, Baso % (Auto) 0.9, Absolute Neuts (auto) 8.0 H, Absolute Lymphs (auto) 2.37, Nucleated RBC % 0 03/27/19 07:31: Sodium 142, Potassium 4.1, Chloride 116 H, Carbon Dioxide 20.0 L , Anion Gap 6, BUN 18, Creatinine 1.13 H, Estim Creat Clear Calc 36.33, Est GFR (MDRD) Af Amer 60, Est GFR (MDRD) Non-Af 49 L, BUN/Creatinine Ratio 15.9, Glucose 142 H, Calcium 7.8 L 03/27/19 16:06: POC Glucose 113 H 03/27/19 23:04: POC Glucose 112 H 03/28/19 05:51: POC Glucose 106 Current Medications Hydrocodone Bitart/Acetaminophen ([place] 5mg-325mg) 1 tablet PO Q6H PRN PRN PRN Reason: Pain Score 4-5/10 Alprazolam (Xanax) 0.5 mg PO BID PRN PRN PRN Reason: ANXIETY Last Admin: 03/27/19 20:32 Dose: 0.5 mg Documented by: Dextrose (D50w Syringe) 0 gm IV X1 PRN; Protocol PRN Reason: Hypoglycemia Docusate Sodium (Colace) 100 mg PO BID PRN PRN PRN Reason: Constipation Enoxaparin Sodium (Lovenox) 40 mg SC DAILY@0600 [facility] Last Admin: 03/28/19 05:48 Dose: 40 mg Documented by: Famotidine (Pepcid) 20 mg PO BID [facility] Last Admin: 03/27/19 20:35 Dose: 20 mg Documented by: Glucagon () 1 mg IM .X1 PRN PRN Reason: Hypoglycemia Hydralazine HCl (Apresoline Iv) 5 mg IV Q4H PRN PRN PRN Reason: SBP > 160 Sodium Chloride () 250 mls @ 15 mls/hr IV .[id number] PRN PRN Reason: Saline Flush Lactated Ringer's () 1,000 mls @ 80 mls/hr IV .[id number] [facility] Last Admin: 03/28/19 02:29 Dose: 80 mls/hr Documented by: Morphine Sulfate () 2 mg IV Q3H PRN PRN PRN Reason: Pain Score 6-10/10 Last Admin: 03/28/19 05:57 Dose: 2 mg Documented by: Nystatin (Mycostatin Powder) 1 applic TOPICAL BID IVONNE; Protocol Last Admin: 03/27/19 20:34 Dose: 1 applicatio Documented by: Ondansetron HCl (Zofran) 4 mg IV Q8H PRN PRN PRN Reason: NAUSEA/VOMITING Last Admin: 03/27/19 19:56 Dose: 4 mg Documented by: Prochlorperazine Edisylate (Compazine Iv) 5 mg IV Q4H PRN PRN PRN Reason: Breakthrough nausea/vomiting Sodium Chloride () 10 - 40 ml IV UD PRN PRN Reason: SALINE FLUSH Last Admin: 03/27/19 06:40 Dose: 10 ml Documented by: Medical Necessity - Tobacco Use Smoking Status: Current every day smoker Tobacco Use: Cigarettes Assessment/Plan All Active Problems (Last Reviewed 03/27/19 @ 06:58 by Cesar Albarado MD) Fracture of ankle, trimalleolar, right, closed (Acute) Right ankle pain (Acute) Right trimalleolar ankle fracture: POD #1 open reduction internal fixation Osteoporosis Diabetes with neuropathy Other comorbidities: current smoker, history of chronic kidney disease, anxiety I reviewed and discussed her case including recent surgical intervention. Her x-rays were reviewed with postoperative open reduction internal fixation with hardware in desired position and trajectory. The fracture fragments are reduced and her ankle is in a rectus position with a well aligned mortise. There are no additional acute injuries. Her vital signs are stable and she remains afebrile. CBC results are stable. Her vitamin D test is also pending. It is noted that she has a diagnosis of osteoporosis and her bones were soft and surgery. To continue with ice, elevation, and pain medication for pain control. Physical therapy assessment pending. I recommend intermediate facility placement and social work has been notified to help arrange this opportunity. I recommend she maintain a strict nonweightbearing status. It is okay to resume anticoagulation medication today. Medical management and DVT prophylaxis per primary team is greatly appreciated. Please do not hesitate to call if any questions. After discharge she will follow-up at the [facility]. Renu Padgett DPM, [facility] [phone]
--- NOTE | 2019-03-28 07:35 | PN_ITS ---
Patient Problems: Active and Suspected Problems (Last Reviewed 03/27/19 @ 06:58 by Cesar Albarado MD) Fracture of ankle, trimalleolar, right, closed (Acute) Right ankle pain (Acute) Subjective: CC: Follow-up right ankle fracture. Patient underwent ORIF on 03/27/2019 seen this a.m. rating her pain at 5 out of 10. Objective: GENERAL: cooperative HEENT: Atraumatic; EYES; Anicteric, Normal Conjunctiva NECK; supple, normal thyroid, RESPIRATORY: Diminished to auscultation CARDIOVASCULAR: Regular S1 S2, GI: soft, normoactive bowel sounds, : No Renal angle tenderness; EXTREMITIES: No edema, no clubbing, MUSCULOSKELETAL: Right ankle immobilized and in surgical dressing NEURO: Awake; no lateralizing signs. SKIN: No Rash PSYCH; normal affect Vitals/I&O's: Vital Signs Temp Pulse Resp BP Pulse Ox 97.9 F 80 18 141/63 H 97 03/28/19 02:32 03/28/19 02:32 03/28/19 02:32 03/28/19 02:32 03/28/19 02:32 Oxygen Delivery Method Room Air Weight: 79.379 kg Body Mass Index (BMI) 29.1 Finger Stick Blood Glucose 113 Intake and Output for Last 24 Hours 03/26/19 03/27/19 03/28/19 23:59 23:59 23:59 Intake Total 1932 / 1932 862.67 / 862.67 Output Total 1450 / 1450 600 / 600 Balance 482 / 482 262.67 / 262.67 Laboratory Results 03/27/19 07:31: WBC 11.8 H, RBC 4.09 L, Hgb 12.3, Hct 39.1, MCV 95.6, MCH 30.1, MCHC 31.5 L, RDW Std Deviation 54.4 H, RDW Coeff of Sadia 15.2 H, Plt Count 250, MPV 10.1, Immature Gran % (Auto) 0.500, Neut % (Auto) 68.3, Lymph % (Auto) 20.1, [place] % (Auto) 8.8, Eos % (Auto) 1.4, Baso % (Auto) 0.9, Absolute Neuts (auto) 8.0 H, Absolute Lymphs (auto) 2.37, Nucleated RBC % 0 03/27/19 07:31: Sodium 142, Potassium 4.1, Chloride 116 H, Carbon Dioxide 20.0 L , Anion Gap 6, BUN 18, Creatinine 1.13 H, Estim Creat Clear Calc 36.33, Est GFR (MDRD) Af Amer 60, Est GFR (MDRD) Non-Af 49 L, BUN/Creatinine Ratio 15.9, Glucose 142 H, Calcium 7.8 L 03/27/19 16:06: POC Glucose 113 H 03/27/19 23:04: POC Glucose 112 H 03/28/19 05:51: POC Glucose 106 Current Medications Hydrocodone Bitart/Acetaminophen ([place] 5mg-325mg) 1 tablet PO Q6H PRN PRN PRN Reason: Pain Score 4-5/10 Alprazolam (Xanax) 0.5 mg PO BID PRN PRN PRN Reason: ANXIETY Last Admin: 03/27/19 20:32 Dose: 0.5 mg Documented by: Dextrose (D50w Syringe) 0 gm IV X1 PRN; Protocol PRN Reason: Hypoglycemia Docusate Sodium (Colace) 100 mg PO BID PRN PRN PRN Reason: Constipation Enoxaparin Sodium (Lovenox) 40 mg SC DAILY@0600 [facility] Last Admin: 03/28/19 05:48 Dose: 40 mg Documented by: Famotidine (Pepcid) 20 mg PO BID [facility] Last Admin: 03/27/19 20:35 Dose: 20 mg Documented by: Glucagon () 1 mg IM .X1 PRN PRN Reason: Hypoglycemia Hydralazine HCl (Apresoline Iv) 5 mg IV Q4H PRN PRN PRN Reason: SBP > 160 Sodium Chloride () 250 mls @ 15 mls/hr IV .[id number] PRN PRN Reason: Saline Flush Lactated Ringer's () 1,000 mls @ 80 mls/hr IV .[id number] [facility] Last Admin: 03/28/19 02:29 Dose: 80 mls/hr Documented by: Morphine Sulfate () 2 mg IV Q3H PRN PRN PRN Reason: Pain Score 6-10/10 Last Admin: 03/28/19 05:57 Dose: 2 mg Documented by: Nystatin (Mycostatin Powder) 1 applic TOPICAL BID [facility]; Protocol Last Admin: 03/27/19 20:34 Dose: 1 applicatio Documented by: Ondansetron HCl (Zofran) 4 mg IV Q8H PRN PRN PRN Reason: NAUSEA/VOMITING Last Admin: 03/27/19 19:56 Dose: 4 mg Documented by: Prochlorperazine Edisylate (Compazine Iv) 5 mg IV Q4H PRN PRN PRN Reason: Breakthrough nausea/vomiting Sodium Chloride () 10 - 40 ml IV UD PRN PRN Reason: SALINE FLUSH Last Admin: 03/27/19 06:40 Dose: 10 ml Documented by: Medical Necessity - Tobacco Use Smoking Status: Current every day smoker Tobacco Use: Cigarettes Assessment/Plan All Active Problems (Last Reviewed 03/27/19 @ 06:58 by Cesra Albarado MD) Fracture of ankle, trimalleolar, right, closed (Acute) Right ankle pain (Acute) Patient is a 79-year-old lady who was admitted following a fall imaging studies demonstrated trimalleolar fracture involving the right ankle is currently admitted to regular nursing floor for further management 1. Acute mechanical fall with resultant Trimalleolar fracture of the right ankle ~ Admitted to regular nursing floor for mobilization pain management with consultation placed to podiatry plan is for patient to undergo ORIF ?03/28/2019 patient underwent open reduction internal fixation of right trimalleolus ankle fracture [address] Padgett 2. Hypertension ~ blood pressure controlled, home medications continued with dose adjustment as needed 3. Dyslipidemia ~patient is on statin therapy, continued at home dose 4. Diabetes mellitus type II ~Controlled, patient's oral hypoglycemics held. Placed onAccu-Cheks a.c. and at bedtime and covered with sliding scale insulin 5. Depression with anxiety ~ Patient is on SSRI did continue 6. Chronic kidney disease stage II ~Stable kidney function at baseline 7. DVT prophylaxis ~ on enoxaparin 8. Left lingular infiltrate ~ Patient presentation not consistent with pneumonia no cough no shortness of breath has slightly elevated white cell count but however remains afebrile Active Medications Hydrocodone Bitart/Acetaminophen ([place] 5mg-325mg) 1 tablet PO Q6H PRN PRN PRN Reason: Pain Score 4-5/10 Alendronate Sodium (Fosamax) 70 mg PO WE IVONNE Alprazolam (Xanax) 0.5 mg PO BID PRN PRN PRN Reason: ANXIETY Last Admin: 03/27/19 20:32 Dose: 0.5 mg Documented by: Dextrose (D50w Syringe) 0 gm IV X1 PRN; Protocol PRN Reason: Hypoglycemia Docusate Sodium (Colace) 100 mg PO BID PRN PRN PRN Reason: Constipation Enoxaparin Sodium (Lovenox) 40 mg SC DAILY@0600 [facility] Last Admin: 03/28/19 05:48 Dose: 40 mg Documented by: Famotidine (Pepcid) 20 mg PO BID [facility] Last Admin: 03/27/19 20:35 Dose: 20 mg Documented by: Glucagon () 1 mg IM .X1 PRN PRN Reason: Hypoglycemia Hydralazine HCl (Apresoline Iv) 5 mg IV Q4H PRN PRN PRN Reason: SBP > 160 Sodium Chloride () 250 mls @ 15 mls/hr IV .[id number] PRN PRN Reason: Saline Flush Lactated Ringer's () 1,000 mls @ 80 mls/hr IV .[id number] [facility] Last Admin: 03/28/19 02:29 Dose: 80 mls/hr Documented by: Lisinopril (Zestril) 2.5 mg PO DAILY [facility] Morphine Sulfate () 2 mg IV Q3H PRN PRN PRN Reason: Pain Score 6-10/10 Last Admin: 03/28/19 05:57 Dose: 2 mg Documented by: Non-Formulary Medication (Rosuvastatin Calcium) 10 mg PO QHS [facility] Non-Formulary Medication (Ranitidine) 150 mg PO DAILY [facility] Non-Formulary Medication (Aspir-Low) 1 tab PO DAILY [facility] Non-Formulary Medication (Calcitriol) 0.5 mcg PO DAILY [facility] Non-Formulary Medication (Cholecalciferol (Vitamin D3) [D3-50]) 50,000 unit PO DAILY [facility] Non-Formulary Medication (Paroxetine Hcl [Paxil]) 30 mg PO DAILY [facility] Nystatin (Mycostatin Powder) 1 applic TOPICAL BID [facility]; Protocol Last Admin: 03/27/19 20:34 Dose: 1 applicatio Documented by: Ondansetron HCl (Zofran) 4 mg IV Q8H PRN PRN PRN Reason: NAUSEA/VOMITING Last Admin: 03/27/19 19:56 Dose: 4 mg Documented by: Prochlorperazine Edisylate (Compazine Iv) 5 mg IV Q4H PRN PRN PRN Reason: Breakthrough nausea/vomiting Sodium Chloride () 10 - 40 ml IV UD PRN PRN Reason: SALINE FLUSH Last Admin: 03/27/19 06:40 Dose: 10 ml Documented by: Code Visit Inpatient E&M: 55536 Subs Hosp L2
[2019-03-28 07:54] LABS: Absolute Lymphocyte Count 2.08 X10^3/uL (0.83-4.51); Absolute Neutrophil Count 8.7 X10^3/uL (2.0-7.7); Basophil# 0.11 X10^3/uL; Basophil% 0.9 % (0-1); Eosinophil# 0.16 X10^3/uL; Eosinophils% 1.3 % (0-5); Hematocrit 35.1 % (37-47); Hemoglobin 11.4 g/dL (12.0-15.0); Lymphocyte # 2.08 X10^3/ul (4.0); Lymphocyte % 16.7 % (19-41); Mean Corp Hgb Conc 32.5 g/dL (32-36); Mean Corpuscular Hgb 30.8 pg (27.0-32.0); Mean Corpuscular Volume 94.9 fL (81-99); Mean Platelet Vol. 10.5 fl (6.2-12.0); Monocyte# 1.34 X10^3/uL; Monocyte% 10.8 % (0-10); NRBC Flagged by Analyzer 0 % (0-5); Neutrophil # 8.65 X10^3/uL (2.7-7.7); Neutrophil % 69.4 % (47-70); Platelet Count 218 K/mm3 (150-450); RBC Distribution Width CV 15.2 % (11.6-14.6); RBC Distribution Width SD 53.1 fl (35.1-43.9); White Blood Count 12.5 K/mm3 (4.4-11.0)
[2019-03-28 08:05] VITALS: BP 142/67; PULSE 71; RESP 18; TEMP 36.7; O2SAT 95
[2019-03-28] MEDS: HYDROcodone Bitartrate/Apap 5/325 Tablet PO ×2 (08:27→15:02)
[2019-03-28] MEDS: Nystatin Powder 15gm Bottle 1 APPLIC TOPICAL ×2 (10:25→20:51)
[2019-03-28] MEDS: Lisinopril 2.5 MG Tablet PO (10:26)
[2019-03-28] MEDS: Calcitriol 0.25 MCG Capsule 0.5 MCG PO (10:26)
[2019-03-28] MEDS: Famotidine 20 MG Tablet PO (10:26)
[2019-03-28] MEDS: PARoxetine 10 MG Tablet 30 MG PO (10:26)
[2019-03-28 12:35] LABS: Bedside Glucose 114 mg/dL (70-110)
[2019-03-28 14:56] VITALS: BP 128/62; PULSE 76; RESP 18; TEMP 36.7; O2SAT 97
[2019-03-28 16:46] LABS: Bedside Glucose 126 mg/dL (70-110)
[2019-03-28] MEDS: Atorvastatin Calcium 20 MG Tablet PO (20:51)
[2019-03-28 21:00] VITALS: BP 150/59; PULSE 70; RESP 18; TEMP 36.6; O2SAT 97
[2019-03-28] MEDS: Ondansetron 4 MG/2 ML Vial IV (22:24)
[2019-03-28] MEDS: 0.9% Saline Lock 10 ML Syringe IV (22:24)
[2019-03-29 03:00] VITALS: BP 148/61; PULSE 78; RESP 18; TEMP 36.7; O2SAT 96
[2019-03-29] MEDS: Enoxaparin 40 MG/0.4 ML Syringe SC (06:01)
[2019-03-29 08:14] VITALS: BP 147/82; PULSE 69; RESP 16; TEMP 36.6; O2SAT 95
[2019-03-29] MEDS: Aspirin 81 MG TAB.CHEW PO (08:22)
[2019-03-29 08:50] VITALS: PULSE 78
[2019-03-29 08:57] LABS: Vitamin D,25 Hydroxy 28.1 ng/mL (29.95-100.01)
[2019-03-29] MEDS: Calcitriol 0.25 MCG Capsule 0.5 MCG PO (09:59)
[2019-03-29] MEDS: Nystatin Powder 15gm Bottle 1 APPLIC TOPICAL (09:59)
[2019-03-29] MEDS: Famotidine 20 MG Tablet PO (10:00)
[2019-03-29] MEDS: PARoxetine 10 MG Tablet 30 MG PO (10:00)
[2019-03-29] MEDS: Lisinopril 2.5 MG Tablet PO (10:01)
--- NOTE | 2019-03-29 12:00 | PCM.PROGNOTE ---
Patient Problems: Active and Suspected Problems (Last Reviewed 03/27/19 @ 06:58 by Cesar Albarado MD) Fracture of ankle, trimalleolar, right, closed (Acute) Right ankle pain (Acute) Subjective: This 79-year-old female with multiple comorbidities was seen bedside postoperative day #2 open reduction internal fixation of right lower extremity tri malleolus ankle fracture by Dr. Padgett. Patient relates her pain is currently well controlled and is not having any issues with this. Patient currently elevating her lower extremity while resting in chair by her bed. She denies fever, chill, nausea, vomiting, shortness of breath, urinary retention, constipation, or chest pain again today. - Physical Exam Vitals/I&O's: Vital Signs Temp Pulse Resp BP Pulse Ox 97.9 F 78 16 147/82 H 95 03/29/19 08:14 03/29/19 08:50 03/29/19 08:14 03/29/19 08:14 03/29/19 08:14 Oxygen Delivery Method Room Air Weight: 79.379 kg Body Mass Index (BMI) 29.1 Finger Stick Blood Glucose 113 Intake and Output for Last 24 Hours 03/27/19 03/28/19 03/29/19 23:59 23:59 23:59 Intake Total 1932 / 1932 2312.67 / 2312.67 Output Total 1450 / 1450 1150 / 1150 1300 / 1300 Balance 482 / 482 1162.67 / 1162.67 -1300 / -1300 General: Alert, Oriented x3, Cooperative, No apparent distress Extremities: Capillary Refill Less than 3 Seconds - To distal digits Skin: - - Postoperative dressing is clean, dry, and intact without strikethrough or adjacent streaking Musculoskeletal: - - Active range of motion of digits x5 right foot Neurological: Sensory exam intact to light touch and pain - To the toes Psych/Mental Status: Normal Affect, Appropriate Laboratory Results 03/26/19 23:10: Vitamin D 25-Hydroxy 28.1 L 03/28/19 12:24: POC Glucose 114 H 03/28/19 16:42: POC Glucose 126 H Current Medications Hydrocodone Bitart/Acetaminophen ([place] 5mg-325mg) 1 tablet PO Q6H PRN PRN PRN Reason: Pain Score 4-5/10 Last Admin: 03/28/19 15:02 Dose: 1 tablet Documented by: Alendronate Sodium (Fosamax) 70 mg PO [facility] Alprazolam (Xanax) 0.5 mg PO BID PRN PRN PRN Reason: ANXIETY Last Admin: 03/27/19 20:32 Dose: 0.5 mg Documented by: Aspirin (Aspirin, Baby) 81 mg PO DAILY@0800 [facility] Last Admin: 03/29/19 08:22 Dose: 81 mg Documented by: Atorvastatin Calcium (Lipitor) 20 mg PO QHS [facility] Last Admin: 03/28/19 20:51 Dose: 20 mg Documented by: Calcitriol (Rocaltrol) 0.5 mcg PO DAILY [facility] Last Admin: 03/29/19 09:59 Dose: 0.5 mcg Documented by: Cholecalciferol (Vitamin D) 5,000 unit PO DAILYCM [facility] Last Admin: 03/29/19 08:22 Dose: 5,000 unit Documented by: Dextrose (D50w Syringe) 0 gm IV X1 PRN; Protocol PRN Reason: Hypoglycemia Docusate Sodium (Colace) 100 mg PO BID PRN PRN PRN Reason: Constipation Enoxaparin Sodium (Lovenox) 40 mg SC DAILY@0600 [facility] Last Admin: 03/29/19 06:01 Dose: 40 mg Documented by: Famotidine (Pepcid) 20 mg PO DAILY [facility] Last Admin: 03/29/19 10:00 Dose: 20 mg Documented by: Glucagon () 1 mg IM .X1 PRN PRN Reason: Hypoglycemia Hydralazine HCl (Apresoline Iv) 5 mg IV Q4H PRN PRN PRN Reason: SBP > 160 Sodium Chloride () 250 mls @ 15 mls/hr IV .[id number] PRN PRN Reason: Saline Flush Lisinopril (Zestril) 2.5 mg PO DAILY [facility] Last Admin: 03/29/19 10:01 Dose: 2.5 mg Documented by: Morphine Sulfate () 2 mg IV Q3H PRN PRN PRN Reason: Pain Score 6-10/10 Last Admin: 03/28/19 05:57 Dose: 2 mg Documented by: Nystatin (Mycostatin Powder) 1 applic TOPICAL BID [facility]; Protocol Last Admin: 03/29/19 09:59 Dose: 1 applicatio Documented by: Ondansetron HCl (Zofran) 4 mg IV Q8H PRN PRN PRN Reason: NAUSEA/VOMITING Last Admin: 03/28/19 22:24 Dose: 4 mg Documented by: Paroxetine HCl (Paxil) 30 mg PO DAILY [facility] Last Admin: 03/29/19 10:00 Dose: 30 mg Documented by: Prochlorperazine Edisylate (Compazine Iv) 5 mg IV Q4H PRN PRN PRN Reason: Breakthrough nausea/vomiting Sodium Chloride () 10 - 40 ml IV UD PRN PRN Reason: SALINE FLUSH Last Admin: 03/28/19 22:24 Dose: 10 ml Documented by: Medical Necessity - Tobacco Use Smoking Status: Current every day smoker Tobacco Use: Cigarettes Assessment/Plan All Active Problems (Last Reviewed 03/27/19 @ 06:58 by Cesar Albarado MD) Fracture of ankle, trimalleolar, right, closed (Acute) Right ankle pain (Acute) Right trimalleolar ankle fracture: POD #2 open reduction internal fixation by Dr. Padgett Osteoporosis Diabetes with neuropathy Other comorbidities: current smoker, history of chronic kidney disease, anxiety Patient was carefully examined and evaluated resting in a chair by the bed today. Patient had no acute events overnight. Patient currently relates that her pain is very well controlled. Her vital signs are stable and she remains afebrile. To continue with ice, elevation, and pain medication for pain control. Continue with physical therapy. I recommend [facility]pc facility placement and social work has been notified to help arrange this opportunity. As of now it appears as [facility]. Awaiting final confirmation on this plan currently. I recommend she maintain a strict nonweightbearing status. Medical management and DVT prophylaxis per primary team is greatly appreciated. Please do not hesitate to call if any questions. After discharge she [facility] with [facility]. Padgett.
--- NOTE | 2019-03-29 12:02 | CASEMGMT ---
Addendum entered by Mary Butcher 03/29/19 13:31: SW received message from Alaina at [facility] stating per pt's notes pt is everyday smoker. SW met with pt. Pt confirms that she smokes but states that she knows [facility] is a nonsmoking facility and knows she is not able to smoke. Alaina also asked about pt's Social Security number as there is none on pt's facesheet. SW asked about Social Security number. Pt provided social security number [phone]. SW updated Alaina of Social Security number. Physician updated on approval to go to SNF today. Pt states she will need transportation arranged at discharge. Plan: [facility] once medically cleared [facility] Original Note: Social Work Note Physician updated this worker that pt would like to go to TCU at discharge. SW reviewed chart and pt may be a good candidate for RU. SW placed a call to referral line and provided referral for TCU and [facility]. SW received call from Paola with [facility] and [facility] stating there are no beds available on TCU or RU at this time. SW met with pt to confirm discharge plans. Pt is alert and orientated x3. SW informed pt that [facility] doesn't have any beds available at this time. Pt agreeable to SNF and was provided list of SNF over the weekend. Pt states she would like a referral sent to [facility]. SW placed a call to Alaina at [facility] and provided referral. SW faxed referral. Plan: [facility] today pending acceptance [facility]
--- NOTE | 2019-03-29 12:05 | PCM.PN.HOSP ---
Patient Problems: Active and Suspected Problems (Last Reviewed 03/27/19 @ 06:58 by Cesar Albarado MD) Fracture of ankle, trimalleolar, right, closed (Acute) Right ankle pain (Acute) Subjective: Feeling well today, pain is decently controlled. She has not worked with physical therapy yet and was only up to the chair yesterday. Vitals/I&O's: Vital Signs Temp Pulse Resp BP Pulse Ox 97.9 F 78 16 147/82 H 95 03/29/19 08:14 03/29/19 08:50 03/29/19 08:14 03/29/19 08:14 03/29/19 08:14 Oxygen Delivery Method Room Air Weight: 175 lb Body Mass Index (BMI) 29.1 Finger Stick Blood Glucose 113 Intake and Output for Last 24 Hours 03/27/19 03/28/19 03/29/19 23:59 23:59 23:59 Intake Total 1932 / 1932 2312.67 / 2312.67 Output Total 1450 / 1450 1150 / 1150 1300 / 1300 Balance 482 / 482 1162.67 / 1162.67 -1300 / -1300 General: Alert, Oriented x3, Cooperative, No apparent distress HEENT: Atraumatic, PERRLA, EOMI, Normocephalic Oral: Moist Mucosa Neck: Supple, No JVD Lungs: Clear to auscultation, Normal air movement, No rhonchi, No wheeze, No rales, Diminished Cardiovascular: Regular rate, Regular Rhythm, Normal S1, Normal S2, No murmurs Abdomen: Soft, Non Tender, Non-Distended, No Hepato-splenomegaly Extremities: No edema, Capillary Refill Less than 3 Seconds Skin: No rashes, No breakdown, Incision - Right lower extremity is wrapped Neurological: Neuro grossly intact, Sensory exam intact to light touch and pain Psych/Mental Status: Normal Affect, Appropriate Laboratory Results 03/26/19 23:10: Vitamin D 25-Hydroxy 28.1 L 03/28/19 12:24: POC Glucose 114 H 03/28/19 16:42: POC Glucose 126 H Current Medications Hydrocodone Bitart/Acetaminophen ([place] 5mg-325mg) 1 tablet PO Q6H PRN PRN PRN Reason: Pain Score 4-5/10 Last Admin: 03/28/19 15:02 Dose: 1 tablet Documented by: Alendronate Sodium (Fosamax) 70 mg PO [facility] Alprazolam (Xanax) 0.5 mg PO BID PRN PRN PRN Reason: ANXIETY Last Admin: 03/27/19 20:32 Dose: 0.5 mg Documented by: Aspirin (Aspirin, Baby) 81 mg PO DAILY@0800 [facility] Last Admin: 03/29/19 08:22 Dose: 81 mg Documented by: Atorvastatin Calcium (Lipitor) 20 mg PO QHS [facility] Last Admin: 03/28/19 20:51 Dose: 20 mg Documented by: Calcitriol (Rocaltrol) 0.5 mcg PO DAILY [facility] Last Admin: 03/29/19 09:59 Dose: 0.5 mcg Documented by: Cholecalciferol (Vitamin D) 5,000 unit PO DAILYCM [facility] Last Admin: 03/29/19 08:22 Dose: 5,000 unit Documented by: Dextrose (D50w Syringe) 0 gm IV X1 PRN; Protocol PRN Reason: Hypoglycemia Docusate Sodium (Colace) 100 mg PO BID PRN PRN PRN Reason: Constipation Enoxaparin Sodium (Lovenox) 40 mg SC DAILY@0600 [facility] Last Admin: 03/29/19 06:01 Dose: 40 mg Documented by: Famotidine (Pepcid) 20 mg PO DAILY [facility] Last Admin: 03/29/19 10:00 Dose: 20 mg Documented by: Glucagon () 1 mg IM .X1 PRN PRN Reason: Hypoglycemia Hydralazine HCl (Apresoline Iv) 5 mg IV Q4H PRN PRN PRN Reason: SBP > 160 Sodium Chloride () 250 mls @ 15 mls/hr IV .[id number] PRN PRN Reason: Saline Flush Lisinopril (Zestril) 2.5 mg PO DAILY [facility] Last Admin: 03/29/19 10:01 Dose: 2.5 mg Documented by: Morphine Sulfate () 2 mg IV Q3H PRN PRN PRN Reason: Pain Score 6-10/10 Last Admin: 03/28/19 05:57 Dose: 2 mg Documented by: Nystatin (Mycostatin Powder) 1 applic TOPICAL BID [facility]; Protocol Last Admin: 03/29/19 09:59 Dose: 1 applicatio Documented by: Ondansetron HCl (Zofran) 4 mg IV Q8H PRN PRN PRN Reason: NAUSEA/VOMITING Last Admin: 03/28/19 22:24 Dose: 4 mg Documented by: Paroxetine HCl (Paxil) 30 mg PO DAILY [facility] Last Admin: 03/29/19 10:00 Dose: 30 mg Documented by: Prochlorperazine Edisylate (Compazine Iv) 5 mg IV Q4H PRN PRN PRN Reason: Breakthrough nausea/vomiting Sodium Chloride () 10 - 40 ml IV UD PRN PRN Reason: SALINE FLUSH Last Admin: 03/28/19 22:24 Dose: 10 ml Documented by: STROKE Vital Signs/Narrative: Vital Signs Temp Pulse Resp BP Pulse Ox 03/29/19 08:50 78 03/29/19 08:14 97.9 F 69 16 147/82 H 95 Medical Necessity - Tobacco Use Smoking Status: Current every day smoker Tobacco Use: Cigarettes Assessment/Plan All Active Problems (Last Reviewed 03/27/19 @ 06:58 by Cesar Albarado MD) Fracture of ankle, trimalleolar, right, closed (Acute) Right ankle pain (Acute) 1. Acute mechanical fall with a trimalleolar fracture of the right ankle -She had surgery on 03/28/2019 -Continue with PT/OT -Pain medication per primary -Likely need to be discharged to a group home facility for continued rehab, he lives at home with a daughter and a who is currently in a wheelchair -He is stable for discharge from medicine's point of view 2. HTN/HLD/CKD 2 -Blood pressure is stable -We will continue with home medications -No function is at baseline 3. DM 2 -Continue with sliding scale insulin as well as Accu-Cheks AC at bedtime -Can resume oral hypoglycemics on discharge 4. Depression/anxiety -Stable -Continue with SSRI 5. Asymptomatic bacteriuria/left lingular infiltrate on chest x-ray -She is afebrile and her slight leukocytosis can be explained with surgery -She has no cough, or sputum production, and she denies any dysuria -If she does develop a fever would recommend empiric treatment with Unasyn and azithromycin this way both the lung and the UTI likely be covered DVT: Lovenox Code Visit Inpatient E&M: 79854 Subs Hosp L2
[2019-03-29 13:16] VITALS: BP 153/65; PULSE 77; RESP 16; TEMP 36.4; O2SAT 100
--- NOTE | 2019-03-29 13:25 | PCM.TXEXTCAR ---
- Diet 03/27/19 15:58 Diet: Carbohydrate Controlled Is pt able to select menu?: Yes - Routine Orders/Code Status Code Status: DNRCC - Wound(s) rt ankle Wound Type: Surgical Incision Dressing Change: keep dressing and splint clean, dry, intact right lower extremity - Therapies Weight Bearing: Non weight bearing Extremity Affected:: Right Lower Physical Therapy: Eval and Treat Occupational Therapy: Eval and Treat - Problem/Diagnosis (1) Fracture of ankle, trimalleolar, right, closed Status: Acute Current Visit: Yes (2) Right ankle pain Status: Acute Current Visit: Yes (3) Osteoporosis Status: Chronic Current Visit: Yes - Allergies/Procedures Done in Hospital Allergies/Adverse Reactions: Allergies amoxicillin [From Augmentin] Adverse Reaction (Verified 03/26/19 22:06) Diarrhea clavulanic acid [From Augmentin] Adverse Reaction (Verified 03/26/19 22:06) Diarrhea iodine Adverse Reaction (Verified 03/26/19 22:08) Other Long time ago got a shot of Iodine and about passed out. Procedures: - - open reduction internal fixation of right ankle fracture - Type of Care/Length of Stay Estimated LOS: More Than 30 Days Type of Care Needed: Skilled Rehab Potential: Fair Prognosis: Fair - Additional Orders/Day of Discharge H&P will serve as current which was dated: 03/26/19 Day of Discharge: 03/29/19 - Dietary and Speech Recommendations Dietitian Recommendations/Changes: Rec diet change to CHO Control / low sodium d/t hx CKD3 - Follow Up Care Primary Care Physician: Duc Ron MD [Primary Care Provider] - Please Follow Up With: Renu Padgett DPM When: within next 5 days [facility]; call [phone] to confirm
[2019-03-29 13:49] VITALS: PULSE 77; RESP 16
[2019-03-29 15:23] VITALS: BP 132/60; PULSE 70; RESP 16; TEMP 36.7; O2SAT 96
--- NOTE | 2019-03-29 15:36 | CASEMGMT ---
Social Work Note [facility] is able to accept pt today. Dr. Russell updated and states she will be at [facility] after 5:00pm to sign medication list and scripts. CARLOZ completed [facility] in [facility]. Original in SNF folder and copy on pt's chart. CARLOZ spoke with RN who states pt is not able to be transported via private vehicle and can justify cot for pt. CARLOZ informed RN that wheelchair van will not be available for pt after 5:00pm. CARLOZ placed a call to [facility] and arranged transportation via cot for 6:00pm. Transportation form on SNF folder and copy on pt's chart. CARLOZ placed a call to Alaina at [facility] and updated her that discharge paperwork will be faxed after 5:00pm and that transportation is arranged for 6:00pm. CARLOZ updated RN and pt on transportation time. CARLOZ updated [facility] [employer] Worker that once signed medication list and scripts are completed they will need faxed to [facility] along with transfer to extended care facility. Plan: [facility] skilled today with [facility] transporting via cot at 6:00pm Mary Butcher [employer], [employer]
--- NOTE | 2019-03-29 16:50 | NURSING ---
ATTEMPTED TO CALL REPORT TO [facility], WITHOUT SUCCESS.
--- NOTE | 2019-03-29 17:22 | NURSING ---
ATTEMPTED TO CONTACT SNF, TO NO AVAIL.
--- NOTE | 2019-04-02 13:19 | DS.PCM_ITS ---
Discharge Date and Diagnosis Date of Admission: 03/26/19 Date of Discharge: 03/29/19 - Primary Discharge Diagnosis right trimalleolus ankle fracture right ankle pain - Secondary Discharge Diagnosis Chronic Problems (Last Reviewed 03/27/19 @ 06:58 by Cesar Albarado MD) Osteoporosis (Chronic) Anxiety (Chronic) Hypertension (Chronic) Chronic kidney disease (Chronic) Diabetes mellitus with neuropathy (Chronic) Hospital Course and Treatment Imaging Results: preoperative: three xrays of right ankle (non weightbearing ap, mortise, lateral):trimalleolus ankle fracture with dislocation. There is a spiral oblique comminuted distal fibula fracture proximal to the ankle joint line. There is a transverse oriented medial malleolus fracture at the ankle level. there is a posterior malleolus fracture that is less than 15% of the tibio talar articular surface. Her bone density is reduced. Post operative: three xrays of right ankle (non weight bearing ap, mortise, lateral): s/p open reduction internal fixation of trimalleolus ankle fracture is noted with hardware in desired position and trajectory. The ankle mortise is well aligned in a rectus position. splint is in place. Medicine service for management of comorbidities Operations: - - ORIF right ankle trimalleolus fracture Procedures: None Summary of Care Provided: The patient is a 79 year old F fell at home and sustained a right trimalleolus ankle fracture. She was initially seen in [facility] emergency room and was further transferred to [place]. Her ankle was reduced and splinted. This is an unstable fracture pattern and surgery was recommended. She was assessed by the medicine team hospitalist who provided clearance for this procedure with antic ipated general anesthesia. She had ORIF of the ankle fracture on 03/27/19. She remained stable in the post operative setting and her pain was controlled. She did work with physical therapy. [facility] facility placement was recommended and this was arranged for gait training, medical management, and deconditioning prevention. Her vitamin D level was noted to be low and supplementation prescription strength was recommended. DVT prophylaxis is also recommended to optimize healing. She was transferred to [facility] in stable condition. - Physical Exam Vitals/I&O's: Vital Signs Temp Pulse Resp BP Pulse Ox 98.0 F 70 16 132/60 H 96 03/29/19 15:23 03/29/19 15:23 03/29/19 15:23 03/29/19 15:23 03/29/19 15:23 Oxygen Delivery Method Room Air Weight: 79.379 kg Body Mass Index (BMI) 29.1 Finger Stick Blood Glucose 113 General: Alert, Oriented x3, Cooperative HEENT: Atraumatic Lungs: Clear to auscultation, Diminished Cardiovascular: Regular rate, Regular Rhythm Extremities: No cyanosis, Capillary Refill Less than 3 Seconds, No Calf Tenderness - negative babita and suh sign bilateral, Peripheral Pulses Normal - DP, right Skin: - - dressing intact without strikethrough right lower extremity Musculoskeletal: No Tenderness to Palpation of Joints or Extremities, Muscle Wasting Neurological: Sensory exam intact to light touch and pain, - Psych/Mental Status: Normal Affect, Appropriate Discharge Diet: Carb Control Diet Discharge Activity: Use Walker Weight Bearing Status: No weight bearing Keep extremity elevated above heart level: Right Leg Call your doctor if your incision/area has: Continuous Slow Oozing, Sudden Increased Bleeding, Increased Pain/ Swelling, Increased Redness, Foul Smelling Discharge, Swelling at the incision site Call your doctor if you observe: Fever of 101 or Higher, Calf discomfort, Uncontrolled pain Cleanse incision/area with: Keep Dressing Clean & Dry Home Medications: Medications to take at Discharge Acetaminophen [Tylenol Extra Strength] 1,000 mg PO BID 03/26/19 Alendronate Sodium 70 mg PO WE 03/26/19 Aspir-Low 1 tab PO DAILY 03/26/19 Calcitriol 0.5 mcg PO DAILY 03/26/19 Cholecalciferol (Vitamin D3) [D3-50] 5,000 unit PO DAILY 03/26/19 Glipizide 5 mg PO BIDCM 03/26/19 Lisinopril 2.5 mg PO DAILY 03/26/19 Paroxetine HCl [Paxil] 30 mg PO DAILY 03/26/19 Pioglitazone [Actos] 45 mg PO DAILY 03/26/19 Ranitidine [Zantac] 150 mg PO DAILY 03/26/19 Rosuvastatin Calcium [Crestor] 10 mg PO QHS 03/26/19 Alprazolam [Xanax] 0.5 mg PO BID PRN 03/27/19 Primary Care Physician: Duc Ron MD [Primary Care Provider] - Please Follow Up With: Renu Padgett DPM When: within next 5 days [facility]; call [phone] to confirm Disposition: [facility] facility - [facility] Minutes spent on discharge:: 20 Patient Condition:: Stable Medical Necessity - Tobacco Use Smoking Status: Current every day smoker Tobacco Use: Cigarettes Meaningful Use Info Meaningful Use Diagnoses (Choose all that apply): None applicable
== END 2019-03-29 18:37 | disposition skilled nursing facility (03) | DRG 494 ==
PROVIDERS: Anesthesiology; Internal Medicine; Admitting Provider Podiatrist; Family Provider Family Medicine; PCP Family Medicine; Referring Provider Podiatrist; Visit Provider Family Medicine
PROC: 0QSJ04Z Reposition Right Fibula with Internal Fixation Device, Open Approach (ICD-10-PCS; CPT 27814; principal; 2019-03-27 11:00)
DX: M80.871A Other osteoporosis with current pathological fracture, right ankle and foot, initial encounter for fracture (principal); E11.40 Type 2 diabetes mellitus with diabetic neuropathy, unspecified; Z66 Do not resuscitate; E78.5 Hyperlipidemia, unspecified; N18.3 Chronic kidney disease, stage 3 (moderate); E11.22 Type 2 diabetes mellitus with diabetic chronic kidney disease; I12.9 Hypertensive chronic kidney disease with stage 1 through stage 4 chronic kidney disease, or unspecified chronic kidney disease; F41.8 Other specified anxiety disorders; Z79.84 Long term (current) use of oral hypoglycemic drugs
CPT/HCPCS: 36415; 71046; 73590; 73610; 76000; 80048; 80053; 81001; 82306; 82962; 83036; 85025; 85610; 93005; 97110; 97161; 97165; 97530; 97535; C1713; J7120; A4216; J2405